=== PATIENT | male | born 1975 | race Two or more races ===

== ENCOUNTER 2020-08-23 18:30 | Emergency (ER) | payer MEDICAID ==
[~2020-08-23] VITALS: Ht 188 cm; Wt 86.2 kg
[2020-08-23 18:34] VITALS: BP 127/80
[2020-08-23] MEDS ORDERED: oxyCODONE/APAP (5/325 MG) 1 UDTAB TABLET ONE (19:29)
[2020-08-23] MEDS ORDERED: oxyCODONE/APAP (5/325 MG) 1 UDTAB TABLET PO ONE (19:30)
== END 2020-08-23 20:43 | disposition home or self-care (01) ==
LOC: ER 18:34
DX: R10.32 Left lower quadrant pain (principal); R10.31 Right lower quadrant pain; G89.29 Other chronic pain; Z59.0 Homelessness; Z98.890 Other specified postprocedural states